=== PATIENT | male | born 1955 | race Caucasian/White ===

== ENCOUNTER → 2016-12-24 | Outpatient (CLI) | payer BC ==
[~2016-12-24] MED LIST: ACET65TA PO; ASPI81TA83 OR; BACT800T PO; CLIN300C OR; NAPR500T OR; VICO5TAB OR
--- NOTE | 2016-12-27 09:44 | SLEEPCENT ---
DATE OF STUDY: 12/24/2016 NOCTURNAL POLYSOMNOGRAPHY, CPAP TITRATION: ORDERED BY: Sofi Gutiérrez Nocturnal polysomnography was performed for the titration of pressure therapy in this patient for obstructive sleep apnea syndrome on clinical evaluation confirmed by home testing revealing a respiratory event index of 12.8. For testing, the patient was fit with a [employer] nasal mask, medium size, 4 cm of water pressure were applied to the circuit, and the lights were extinguished. 7 hours and 19 minutes of data were reviewed. There were 333 minutes of sleep identified. Sleep latency was prolonged at 18 minutes. Rapid eye movement (REM) latency was normal at 74 minutes. Sleep architecture improved over the course of the study with evidence of REM rebound. Overall sleep efficiency was 76%. The patient's EKG showed a sinus rhythm with an average heart rate of 54 beats per minute. EEG showed reasonably normal wave forms for awake and sleep. Respiratory events were found best palliated with continuous positive airway pressure (CPAP) at a pressure of +7. CPAP tolerance was good. IMPRESSION: Obstructive sleep apnea syndrome (G47.33). RECOMMENDATION: Nightly use of pressure therapy, 7 cm of water.
== END ==
LOC: M SLEEP 19:52
PROVIDERS: ATTEND Nurse Practitioner Adult Health
DX: G47.33 Obstructive sleep apnea (adult) (pediatric) (principal)

== ENCOUNTER → 2017-05-14 | Outpatient (CLI) | payer BC ==
[2017-05-14 08:32] LABS: MEAN CORPUSCULAR HEMOGLOBIN 33.7 pg (27.0-33.0); MEAN CORPUSCULAR HGB CONC 34.7 g/dl (32.0-36.5); RED CELL DISTRIBUTION WIDTH 12.9 % (11.5-14.5); WHITE BLOOD COUNT 6.7 K/mm3 (4.0-10.0)
[2017-05-14 08:39] LABS: ALBUMIN 3.9 GM/DL (3.2-5.2); ALBUMIN/GLOBULIN RATIO 1.22 (1.00-1.93); ALKALINE PHOSPHATASE 102 U/L (45-117); ALT/SGPT 32 U/L (12-78); ANION GAP 6 MEQ/L (8-16); AST/SGOT 26 U/L (15-37); BILIRUBIN,TOTAL 0.7 MG/DL (0.2-1.0); BLOOD UREA NITROGEN 18 MG/DL (7-18); CARBON DIOXIDE LEVEL 28 MEQ/L (21-32); CHLORIDE LEVEL 102 MEQ/L (98-107); CHOLESTEROL LEVEL 185 MG/DL (<200); CREATININE FOR GFR 0.85 MG/DL (0.70-1.30); GLOMERULAR FILTRATION RATE > 60.0 (>49); GLUCOSE, FASTING 92 MG/DL (80-110); POTASSIUM SERUM 4.1 MEQ/L (3.5-5.1); SODIUM LEVEL 136 MEQ/L (136-145); TOTAL PROTEIN 7.1 GM/DL (6.4-8.2); TRIGLYCERIDES LEVEL 68 MG/DL (<150)
== END ==
LOC: M LAB 07:10
PROVIDERS: ATTEND Physician Assistant
DX: I25.118 Atherosclerotic heart disease of native coronary artery with other forms of angina pectoris (principal); E78.00 Pure hypercholesterolemia, unspecified; I11.9 Hypertensive heart disease without heart failure

== ENCOUNTER → 2017-05-27 | Outpatient (REF) | payer BC ==
[~2017-05-27] MED LIST changes: +ALBU17IN INH; +ATOR40TA75 PO; +BREO1INH INH; +CARV6.25 PO; +CENTTAB47 PO; +CLOP75TA2 PO; +DURE0.055 OD; +LISI-542 PO; +NITR4TASL SL; +OCUVCAP2 PO; +PANT40TA2 PO; +VITA200016 PO
== END ==
LOC: M LAB REF 08:51
PROVIDERS: ATTEND Physician Assistant Medical
DX: L02.415 Cutaneous abscess of right lower limb (principal)

== ENCOUNTER 2017-08-21 06:34 | Outpatient (CLI) | payer BC ==
[~2017-08-21] VITALS: Ht 177.8 cm; Wt 99.8 kg
[~2017-08-21 06:34] MED LIST changes: -CENTTAB47 PO; -OCUVCAP2 PO; -VITA200016 PO
[2017-08-21] MEDS ORDERED: NS 1,000 ML IV ONE (06:45)
[2017-08-21] MEDS ORDERED: CENTTAB47 PO (07:17)
[2017-08-21] MEDS ORDERED: OCUVCAP2 PO (07:17)
[2017-08-21] MEDS ORDERED: VITA200016 PO (07:17)
[2017-08-21] MEDS ORDERED: PROPOFOL 200 MG/20 ML VIAL As Ordered ONE ×2 (07:31→07:46)
[2017-08-21] MEDS ORDERED: LIDOCAINE 2% INJ 100 MG/5 ML SDV (FOR ANES.) As Ordered ONE (07:31)
[2017-08-21 08:10] VITALS: BP 143/84
--- NOTE | 2017-08-21 08:17 | ROOR ---
Patient Name: Hardy Gillis Procedure Date: 08/21/2017 7:32 AM Date of : 1955 Age: 61 Room: [facility] Gender: Male Note Status: Finalized Procedure: Colonoscopy Indications: High risk colon cancer surveillance: Personal history of colonic polyps Providers: Holland Hadley Jr, MD Referring MD: Paop Pringle MD Requesting Provider: Medicines: Propofol per Anesthesia Complications: No immediate complications. Procedure: Pre-Anesthesia Assessment: - Prior to the procedure, a History and Physical was performed, and patient medications and allergies were reviewed. The patient is competent. The risks and benefits of the procedure and the sedation options and risks were discussed with the patient. All questions were answered and informed consent was obtained. Patient identification and proposed procedure were verified by the physician and the nurse in the pre-procedure area and in the procedure room. Mental Status Examination: alert and oriented. Airway Examination: normal oropharyngeal airway and neck mobility. Respiratory Examination: clear to auscultation. CV Examination: normal. ASA Grade Assessment: II - A patient with mild systemic disease. After reviewing the risks and benefits, the patient was deemed in satisfactory condition to undergo the procedure. The anesthesia plan was to use moderate sedation / analgesia (conscious sedation). Immediately prior to administration of medications, the patient was re-assessed for adequacy to receive sedatives. The heart rate, respiratory rate, oxygen saturations, blood pressure, adequacy of pulmonary ventilation, and response to care were monitored throughout the procedure. The physical status of the patient was re-assessed after the procedure. The Colonoscope was introduced through the anus and advanced to the cecum, identified by appendiceal orifice and ileocecal valve. The colonoscopy was performed without difficulty. The patient tolerated the procedure well. The quality of the bowel preparation was adequate. Findings: The rectum, recto-sigmoid colon, descending colon, transverse colon, ascending colon, cecum, appendiceal orifice and ileocecal valve appeared normal. A few small and large-mouthed diverticula were found in the sigmoid colon. Impression: - The rectum, recto-sigmoid colon, descending colon, transverse colon, ascending colon, cecum, appendiceal orifice and ileocecal valve are normal. - Diverticulosis in the sigmoid colon. - No specimens collected. Recommendation: - Discharge patient to home (ambulatory). - Repeat colonoscopy in 5 years for surveillance. Holland Hadley MD Holland Hadley Jr, MD 08/21/2017 8:16:58 AM This report has been signed electronically. Number of Addenda: 0 Note Initiated On: 08/21/2017 7:32 AM Estimated Blood Loss: Estimated blood loss: none.
== END 2017-08-21 08:35 | disposition home or self-care (01) ==
LOC: M OPP 06:34
PROVIDERS: ATTEND Surgery
DX: Z12.11 Encounter for screening for malignant neoplasm of colon (principal); Z86.010 Personal history of colon polyps; K57.30 Diverticulosis of large intestine without perforation or abscess without bleeding; I25.10 Atherosclerotic heart disease of native coronary artery without angina pectoris; I25.2 Old myocardial infarction; I10 Essential (primary) hypertension; E78.5 Hyperlipidemia, unspecified; Z95.5 Presence of coronary angioplasty implant and graft; L41.9 Parapsoriasis, unspecified; J45.909 Unspecified asthma, uncomplicated; E07.9 Disorder of thyroid, unspecified; G47.8 Other sleep disorders; G47.30 Sleep apnea, unspecified; R06.83 Snoring; Z87.891 Personal history of nicotine dependence; Z88.8 Allergy status to other drugs, medicaments and biological substances; Z79.899 Other long term (current) drug therapy

== ENCOUNTER → 2017-09-10 | Outpatient (REF) ==
[~2017-09-10] MED LIST changes: +CENTTAB47 PO; +OCUVCAP2 PO; +VITA200016 PO
--- NOTE | 2017-09-10 07:48 | PFTRPT ---
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 IVC is less than 85% of VC. DLCO may be underestimated. The patient was given four puffs of albuterol for postbronchodilator. PULMONARY FUNCTION TESTING: ORDERING PROVIDER: SURYA Craig DATE OF SERVICE: 09/10/17 SPIROMETRY: Pre and post bronchodilator study of excellent technical quality. The forced vital capacity is reduced. The FEV1 is in proportion. The obstructive index is, therefore, normal. FLOW VOLUME LOOP: The expiratory limb of the flow volume loop does suggest some nonspecific flow rate limitations. No significant bronchodilator response is identified. LUNG MECHANICS: The total lung capacity is normal. The residual volume in proportion. DIFFUSION CAPACITY: The diffusion capacity is normal. HEMOGLOBIN: No hemoglobin is available for correction. AIRWAY MECHANICS: Airway resistance and conductance are normal. IMPRESSION: Nonspecific flow rate limitation. Please correlate clinically. MTDD
== END ==
LOC: M CARPUL 07:02
PROVIDERS: ATTEND Nurse Practitioner Adult Health
DX: Z02.1 Encounter for pre-employment examination (principal)

== ENCOUNTER → 2017-10-22 | Outpatient (REF) | payer BC ==
[2017-10-22 19:43] LABS: MEAN CORPUSCULAR HEMOGLOBIN 32.8 pg (27.0-33.0); MEAN CORPUSCULAR HGB CONC 32.9 g/dl (32.0-36.5); MEAN CORPUSCULAR VOLUME 99.6 fl (80.0-96.0); PLATELET COUNT, AUTOMATED 214 10^3/uL (150-450); RED CELL DISTRIBUTION WIDTH 13.2 % (11.5-14.5); WHITE BLOOD COUNT 6.4 10^3/uL (4.0-10.0)
[2017-10-22 20:01] LABS: FOLATE > 24.0 NG/ML (>5.4); VITAMIN B12 LEVEL 653 PG/ML (247-911)
[2017-10-22 20:02] LABS: ALBUMIN 4.3 GM/DL (3.2-5.2); ALBUMIN/GLOBULIN RATIO 1.19 (1.00-1.93); ALKALINE PHOSPHATASE 109 U/L (45-117); ALT/SGPT 42 U/L (12-78); ANION GAP 8 MEQ/L (8-16); AST/SGOT 27 U/L (7-37); BILIRUBIN,TOTAL 0.5 MG/DL (0.2-1.0); BLOOD UREA NITROGEN 15 MG/DL (7-18); CALCIUM LEVEL 9.1 MG/DL (8.8-10.2); CARBON DIOXIDE LEVEL 30 MEQ/L (21-32); CHLORIDE LEVEL 103 MEQ/L (98-107); CHOLESTEROL LEVEL 171 MG/DL (<200); CREATININE FOR GFR 1.02 MG/DL (0.70-1.30); GLOMERULAR FILTRATION RATE > 60.0 (>49); GLUCOSE, FASTING 86 MG/DL (80-110); POTASSIUM SERUM 4.3 MEQ/L (3.5-5.1); SODIUM LEVEL 141 MEQ/L (136-145); TOTAL PROTEIN 7.9 GM/DL (6.4-8.2); TRIGLYCERIDES LEVEL 79 MG/DL (<150)
== END ==
LOC: M SFHCADAM 11:49
PROVIDERS: ATTEND Family Medicine
DX: R53.83 Other fatigue (principal); E78.2 Mixed hyperlipidemia; Z12.5 Encounter for screening for malignant neoplasm of prostate
CPT/HCPCS: 80053; 80061; 82607; 82746; 84439; 84443; 85027; G0103

== ENCOUNTER → 2017-12-08 | Outpatient (REF) | payer BC ==
[2017-12-09 09:37] LABS: TOTAL PROTEIN 7.5 GM/DL (6.4-8.2)
[2017-12-09 11:13] LABS: ALBUMIN % 59.6 % (55.8-66.1); ALPHA-1-GLOBULIN % 4.6 % (2.9-4.9); ALPHA-2-GLOBULINS % 9.1 % (7.1-11.8)
[2017-12-09 11:14] LABS: ALBUMIN 4.47 GM/DL (3.29-5.55); ALPHA-1-GLOBULINS 0.35 GM/DL (0.17-0.41); ALPHA-2-GLOBULINS 0.68 GM/DL (0.42-0.99); BETA-1-GLOBULINS % 6.6 % (4.7-7.2); BETA-2-GLOBULINS 0.47 GM/DL (0.19-0.55); BETA-2-GLOBULINS % 6.3 % (3.2-6.5); GAMMA GLOBULIN % 13.8 % (11.1-18.8); GAMMA GLOBULINS 1.04 GM/DL (0.65-1.58)
[2017-12-10 00:06] LABS: FREE KAPPA LIGHT CHAINS SERUM 15.4 mg/L (3.3-19.4); FREE LAMBDA LIGHT CHAINS SERUM 10.1 mg/L (5.7-26.3); KAPPA/LAMBDA RATIO SERUM 1.52 (0.26-1.65)
== END ==
LOC: M SFHCADAM 10:08
DX: D75.89 Other specified diseases of blood and blood-forming organs (principal); R53.83 Other fatigue

== ENCOUNTER → 2018-05-06 | Outpatient (REF) | payer BC ==
[2018-05-06 13:50] LABS: FREE T4 0.99 NG/DL (0.76-1.46)
[2018-05-06 21:41] LABS: FOLATE 17.3 NG/ML (>5.4); VITAMIN B12 LEVEL 437 PG/ML (247-911)
[2018-05-07 10:12] LABS: TESTOSTERONE FREE (DIRECT) 6.4 pg/mL (6.6-18.1)
== END ==
LOC: M SFHCADAM 08:50
DX: R53.83 Other fatigue (principal); E78.2 Mixed hyperlipidemia; Z12.5 Encounter for screening for malignant neoplasm of prostate
CPT/HCPCS: 82746

== ENCOUNTER → 2018-06-11 | Outpatient (CLI) | payer BC | LOC: M RAD 08:53 | DX: F17.210 Nicotine dependence, cigarettes, uncomplicated (principal) | CPT/HCPCS: G0297 ==

== ENCOUNTER → 2018-08-04 | Outpatient (CLI) | payer BC ==
[2018-08-06 00:06] LABS: TESTOSTERONE FREE (DIRECT) 12.7 pg/mL (6.6-18.1)
== END ==
LOC: M LAB 06:15
DX: E34.9 Endocrine disorder, unspecified (principal)
CPT/HCPCS: 84403

== ENCOUNTER → 2018-09-07 | Outpatient (CLI) | payer BC | LOC: M CARPUL 06:57 | DX: Z02.89 Encounter for other administrative examinations (principal) | CPT/HCPCS: 94010 ==

== ENCOUNTER → 2018-12-02 | Outpatient (CLI) | payer BC ==
[~2018-12-02] MED LIST changes: +CONRAY-43 43% 50ML VIAL (Q9960) As Ordered ONE; +LIDOCAINE 1% MDV 20ML VIAL As Ordered ONE; -PANT40TA2 PO; +PANT40TA3 PO; +TRIAMCINOLONE ACETONIDE SUSP 40 MG/ML VIAL (J3301) As Ordered ONE
--- NOTE | 2018-12-02 19:40 | REP ---
LEFT HIP INJECTION The procedure was performed under the direct supervision of Dr. Robbins. The benefits and risks including but not limited to pain infection bleeding and anaphylaxis were explained to the patient and informed consent was obtained. The left femoral neck was localized using fluoroscopic guidance. The skin was prepped and draped in a sterile fashion. 1% lidocaine was used as a local anesthetic. Using fluoroscopic guidance a 22-gauge spinal needle was inserted and advanced to the femoral neck. 0.5 ml of Conray 43 was injected to verify placement. 6 ml of a solution containing 5 ml of 1% lidocaine and 1 ml of Kenalog 40 mg injected. Needle was then removed. The patient tolerated the procedure well and there were no immediate complications. Less than 6 seconds of fluoroscopy time was utilized for this procedure. Reviewed by ASHANTI Arteaga 12/02/2018 03:11 P Electronically Signed by Chris Robbins MD 12/02/2018 07:31 P
== END ==
LOC: M RADPRO 09:59
PROVIDERS: ATTEND Orthopaedic Surgery
DX: M16.12 Unilateral primary osteoarthritis, left hip (principal); M25.552 Pain in left hip
CPT/HCPCS: 20610; 77002; J3301; Q9960

== ENCOUNTER → 2019-02-09 | Outpatient (CLI) | payer BC ==
[~2019-02-09] MED LIST changes: +ALBU83IN NEB; +ATOR1TAB21 PO; +BREO1INH3 INH; -CONRAY-43 43% 50ML VIAL (Q9960) As Ordered ONE; +DHEA1CAP PO; +LEVO75TA4 PO; -LIDOCAINE 1% MDV 20ML VIAL As Ordered ONE; +PROAAER10 INH; +TRAM50TA2 PO; -TRIAMCINOLONE ACETONIDE SUSP 40 MG/ML VIAL (J3301) As Ordered ONE; +[UNRECOGNIZED DRUG - CODE] PO
[2019-02-09 07:04] LABS: HEMATOCRIT 46.2 % (42.0-52.0); HEMOGLOBIN 15.3 g/dl (13.5-17.5); MEAN CORPUSCULAR HEMOGLOBIN 31.7 pg (27.0-33.0); MEAN CORPUSCULAR HGB CONC 33.1 g/dl (32.0-36.5); MEAN CORPUSCULAR VOLUME 95.9 fl (80.0-96.0); PLATELET COUNT, AUTOMATED 211 10^3/uL (150-450); RED BLOOD COUNT 4.82 10^6/uL (4.30-6.10); WHITE BLOOD COUNT 7.3 10^3/uL (4.0-10.0)
[2019-02-09 07:14] LABS: PROTHROMBIN TIME 13.3 SECONDS (12.1-14.4)
[2019-02-09 07:24] LABS: ERYTHROCYTE SEDIMENTATION RATE 8 mm/hr (0-20)
[2019-02-09 07:34] LABS: ALBUMIN 3.9 GM/DL (3.2-5.2); ALT/SGPT 33 U/L (12-78); BILIRUBIN,TOTAL 0.9 MG/DL (0.2-1.0); BLOOD UREA NITROGEN 12 MG/DL (7-18); CALCIUM LEVEL 8.9 MG/DL (8.8-10.2); CARBON DIOXIDE LEVEL 26 MEQ/L (21-32); CHLORIDE LEVEL 99 MEQ/L (98-107); CREATININE FOR GFR 0.99 MG/DL (0.70-1.30); GLOMERULAR FILTRATION RATE > 60.0 (>49); GLUCOSE, FASTING 91 MG/DL (70-100); POTASSIUM SERUM 4.2 MEQ/L (3.5-5.1); SODIUM LEVEL 133 MEQ/L (136-145); TOTAL PROTEIN 7.6 GM/DL (6.4-8.2)
--- NOTE | 2019-02-09 09:52 | REP ---
Chest x-ray: Two views. History: Left hip arthritis. Comparison chest x-ray: July 31, 2016. Findings: Lungs are well inflated and clear. Pleural angles are sharp. Heart size is normal. There are degenerative changes in the thoracic spine. Pulmonary vasculature is not increased. Impression: No active disease. Electronically Signed by Chris Robbins MD 02/09/2019 09:44 A
--- NOTE | 2019-02-10 21:12 | ECGEPIP ---
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
== END ==
LOC: M LAB 06:26
PROVIDERS: ATTEND Orthopaedic Surgery
DX: Z01.818 Encounter for other preprocedural examination (principal); M51.34 Other intervertebral disc degeneration, thoracic region; I51.9 Heart disease, unspecified; K76.9 Liver disease, unspecified; N28.9 Disorder of kidney and ureter, unspecified; Z79.52 Long term (current) use of systemic steroids

== ENCOUNTER → 2019-02-09 | Outpatient (CLI) | payer BC ==
[2019-02-09 07:05] LABS: HEMATOCRIT 46.1 % (42.0-52.0); HEMOGLOBIN 15.2 g/dl (13.5-17.5); MEAN CORPUSCULAR HEMOGLOBIN 31.7 pg (27.0-33.0); PLATELET COUNT, AUTOMATED 197 10^3/uL (150-450); WHITE BLOOD COUNT 7.2 10^3/uL (4.0-10.0)
[2019-02-09 07:36] LABS: ALBUMIN 3.9 GM/DL (3.2-5.2); ALT/SGPT 33 U/L (12-78); BILIRUBIN,DIRECT 0.3 MG/DL (0.0-0.2); BILIRUBIN,TOTAL 0.9 MG/DL (0.2-1.0); BLOOD UREA NITROGEN 12 MG/DL (7-18); CALCIUM LEVEL 8.9 MG/DL (8.8-10.2); CARBON DIOXIDE LEVEL 26 MEQ/L (21-32); CHLORIDE LEVEL 99 MEQ/L (98-107); CHOLESTEROL LEVEL 176 MG/DL (<200); CHOLESTEROL RISK RATIO 2.285 (<5); GLOMERULAR FILTRATION RATE > 60.0 (>49); GLUCOSE, FASTING 91 MG/DL (70-100); HDL CHOLESTEROL 77 MG/DL (>40); LDL CHOLESTEROL 87 MG/DL (<100); NON-HDL-C 99 MG/DL; POTASSIUM SERUM 4.2 MEQ/L (3.5-5.1); SODIUM LEVEL 134 MEQ/L (136-145); TOTAL PROTEIN 7.7 GM/DL (6.4-8.2); TRIGLYCERIDES LEVEL 62 MG/DL (<150)
== END ==
LOC: M LAB 06:21
PROVIDERS: ATTEND Nurse Practitioner Family
DX: E78.5 Hyperlipidemia, unspecified (principal); Z98.61 Coronary angioplasty status

== ENCOUNTER 2019-03-22 15:03 | Outpatient (RCR) | payer BC ==
[~2019-03-22 15:03] MED LIST changes: +PERC5TAB12 PO
== END 2019-04-16 ==
LOC: M PT 15:03
PROVIDERS: ATTEND Physician Assistant Medical
DX: Z96.642 Presence of left artificial hip joint (principal)

== ENCOUNTER 2019-05-16 07:10 | Emergency (ER) | payer BC ==
[~2019-05-16] VITALS: Ht 177.8 cm; Wt 102.3 kg
[2019-05-16] MEDS ORDERED: ONDANSETRON 4MG/2ML VIAL (J2405) IV ONE (07:30)
[2019-05-16] MEDS ORDERED: MORPHINE 4 MG/ML 1ML VIAL/SYRINGE (J2270) IV PRN (07:30)
[2019-05-16 07:42] LABS: BASO % 0.6 % (0.0-1.0); EOS # 0.2 10^3/uL (0.0-0.50); EOS % 2.9 % (0.0-3.0); HEMATOCRIT 41.6 % (42.0-52.0); HEMOGLOBIN 13.8 g/dl (13.5-17.5); LYMPH # 1.4 10^3/uL (1.5-4.5); LYMPH % 20.6 % (24.0-44.0); MEAN CORPUSCULAR HEMOGLOBIN 32.2 pg (27.0-33.0); MEAN CORPUSCULAR HGB CONC 33.2 g/dl (32.0-36.5); MONO # 0.6 10^3/uL (0.0-0.8); MONO % 8.7 % (0.0-5.0); NEUTROPHILS # 4.7 10^3/uL (1.8-7.7); NEUTROPHILS % 66.9 % (36.0-66.0); PLATELET COUNT, AUTOMATED 195 10^3/uL (150-450); RED BLOOD COUNT 4.29 10^6/uL (4.30-6.10)
--- NOTE | 2019-05-16 07:50 | REP ---
Clinical: Chest pain . Comparison: 02/09/2019 . Findings: The mediastinum and cardiac silhouette are stable and within normal limits for portable technique. The lung bragg are clear without acute consolidation, effusion, or pneumothorax. Skeletal structures are intact. Impression: No acute cardiopulmonary process appreciated. Electronically Signed by Jarrell Arceo MD 05/16/2019 07:41 A
[2019-05-16 08:10] LABS: ALBUMIN 3.6 GM/DL (3.2-5.2); ALT/SGPT 35 U/L (12-78); BILIRUBIN,DIRECT 0.1 MG/DL (0.0-0.2); BILIRUBIN,TOTAL 0.5 MG/DL (0.2-1.0); BLOOD UREA NITROGEN 14 MG/DL (7-18); CALCIUM LEVEL 8.3 MG/DL (8.8-10.2); CARBON DIOXIDE LEVEL 25 MEQ/L (21-32); CHLORIDE LEVEL 105 MEQ/L (98-107); CPK CREATINE PHOSPHOKINASE 216 U/L (39-308); CREATININE FOR GFR 1.04 MG/DL (0.70-1.30); GLOMERULAR FILTRATION RATE > 60.0 (>49); GLUCOSE, FASTING 125 MG/DL (70-100); LIPASE 105 U/L (73-393); MB/CK RELATIVE INDEX 3.24 (< OR =4); NT-PRO BNP 26 PG/ML (<125); SODIUM LEVEL 139 MEQ/L (136-145); TOTAL PROTEIN 7.5 GM/DL (6.4-8.2); TROPONIN I < 0.02 NG/ML (< 0.10)
[2019-05-16] MEDS ORDERED: ISOVUE-370 76% 100ML VIAL (Q9967) As Ordered ONE (08:26)
[2019-05-16] MEDS ORDERED: CLOPIDOGREL 75 MG TAB PO ONE (09:00)
[2019-05-16] MEDS ORDERED: ALBU83IN NEB (09:27)
[2019-05-16] MEDS ORDERED: PROAAER10 INH (09:28)
--- NOTE | 2019-05-16 09:46 | ECGEPIP ---
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
--- NOTE | 2019-05-16 09:47 | ECGEPIP ---
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
[2019-05-16] MEDS ORDERED: ATOR1TAB21 PO (09:51)
--- NOTE | 2019-05-16 09:59 | REP ---
Clinical: Acute pleuritic chest pain. Technique: Axial contrast enhanced images from the thoracic inlet to the upper abdomen using 100 ml Isovue 370 intravenous contrast material with coronal and sagittal re-formations. Findings: Satisfactory enhancement of the pulmonary vasculature is achieved and no filling defects are identified to suggest pulmonary embolus. Thoracic aorta is normal caliber without aneurysm or dissection. Heart and pericardium are normal. Bilateral lung bragg are well aerated and clear without acute pulmonary parenchymal consolidation or atelectasis. No nodule or mass lesion. No pleural effusion/reaction. No pneumothorax. No adenopathy. Impression: No evidence for pulmonary embolus. No acute pleuroparenchymal or mediastinal process. Electronically Signed by Jarrell Arceo MD 05/16/2019 09:51 A
[2019-05-16 10:08] LABS: CK-MB VALUE MASS 6.5 NG/ML (<3.6); CPK CREATINE PHOSPHOKINASE 208 U/L (39-308); MB/CK RELATIVE INDEX 3.12 (< OR =4)
[2019-05-16 10:09] LABS: TROPONIN I < 0.02 NG/ML (< 0.10)
[2019-05-16 15:37] LABS: CK-MB VALUE MASS 5.4 NG/ML (<3.6); CPK CREATINE PHOSPHOKINASE 166 U/L (39-308); MB/CK RELATIVE INDEX 3.25 (< OR =4); TROPONIN I < 0.02 NG/ML (< 0.10)
[2019-05-16 16:00] VITALS: BP 137/71
--- NOTE | 2019-05-17 21:47 | ECGEPIP ---
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
== END 2019-05-16 16:15 | disposition home or self-care (01) ==
LOC: M ED 07:10 → EDBD 07:10 → M ED 16:15
DX: R07.9 Chest pain, unspecified (principal); I45.10 Unspecified right bundle-branch block; I35.0 Nonrheumatic aortic (valve) stenosis; K21.9 Gastro-esophageal reflux disease without esophagitis; E07.9 Disorder of thyroid, unspecified; Z79.899 Other long term (current) drug therapy; Z79.890 Hormone replacement therapy; Z88.8 Allergy status to other drugs, medicaments and biological substances; Z87.891 Personal history of nicotine dependence
CPT/HCPCS: 71045; 71275; 80048; 80076; 82550; 82553; 83690; 83880; 84443; 84484; 85025; 85379; 93005; 93041; 94760; 96374; 96375; 99285; J2270; J2405; Q9967

== ENCOUNTER → 2019-09-13 | Outpatient (REF) | payer BC, OTHER ==
--- NOTE | 2019-09-13 08:38 | PFTRPT ---
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 Forced vital capacity reduced. FEV1 is in proportion. Obstructive index is, therefore, normal. Flow Volume Loop: Expiratory limb of the flow volume loop does suggest some nonspecific flow rate limitation. Lung Volumes: Total lung capacity is normal. Residual volume generally in proportion. Diffusing Capacity: Diffusing capacity is borderline. Hemoglobin: No hemoglobin available for correction. Airway Mechanics: Airway resistance and conductance are normal. IMPRESSION: Nonspecific limitations require clinical correlation. MTDD
== END ==
LOC: EDSTATUS 08:00 → M CARPUL 08:03
PROVIDERS: ATTEND Nurse Practitioner Adult Health
DX: Z00.8 Encounter for other general examination (principal)

== ENCOUNTER → 2019-09-13 | Outpatient (CLI) | payer BC ==
[2019-09-13 06:48] LABS: HEMATOCRIT 44.7 % (42.0-52.0); HEMOGLOBIN 14.8 g/dl (13.5-17.5); MEAN CORPUSCULAR HGB CONC 33.1 g/dl (32.0-36.5); MEAN CORPUSCULAR VOLUME 96.8 fl (80.0-96.0); PLATELET COUNT, AUTOMATED 191 10^3/uL (150-450); RED BLOOD COUNT 4.62 10^6/uL (4.30-6.10); WHITE BLOOD COUNT 5.8 10^3/uL (4.0-10.0)
[2019-09-13 07:25] LABS: ALT/SGPT 32 U/L (12-78); BILIRUBIN,TOTAL 0.6 MG/DL (0.2-1.0); BLOOD UREA NITROGEN 13 MG/DL (7-18); CALCIUM LEVEL 8.8 MG/DL (8.8-10.2); CARBON DIOXIDE LEVEL 26 MEQ/L (21-32); CHLORIDE LEVEL 104 MEQ/L (98-107); CREATININE FOR GFR 0.98 MG/DL (0.70-1.30); GLOMERULAR FILTRATION RATE > 60.0 (>49); GLUCOSE, FASTING 98 MG/DL (70-100); POTASSIUM SERUM 4.3 MEQ/L (3.5-5.1); SODIUM LEVEL 138 MEQ/L (136-145); TRIGLYCERIDES LEVEL 47 MG/DL (<150)
[2019-09-13 07:26] LABS: ALBUMIN 3.7 GM/DL (3.2-5.2); CHOLESTEROL LEVEL 154 MG/DL (<200); CHOLESTEROL RISK RATIO 2.109 (<5); FREE T4 0.74 NG/DL (0.76-1.46); HDL CHOLESTEROL 73 MG/DL (>40); LDL CHOLESTEROL 72 MG/DL (<100); NON-HDL-C 81 MG/DL
== END ==
LOC: M LAB 06:12
PROVIDERS: ATTEND Family Medicine
DX: E78.2 Mixed hyperlipidemia (principal); Z12.5 Encounter for screening for malignant neoplasm of prostate; I25.10 Atherosclerotic heart disease of native coronary artery without angina pectoris; E34.9 Endocrine disorder, unspecified; E03.8 Other specified hypothyroidism
CPT/HCPCS: 36415; 80053; 80061; 84402; 84403; 84439; 84443; 85027; G0103

== ENCOUNTER → 2019-10-29 | Outpatient (CLI) | payer BC ==
[2019-10-29 07:12] LABS: FREE T4 1.12 NG/DL (0.76-1.46); THYROID STIMULATING HORMONE 2.13 uIU/ML (0.358-3.740)
== END ==
LOC: M LAB 06:16
PROVIDERS: ATTEND Family Medicine
DX: E03.9 Hypothyroidism, unspecified (principal)

== ENCOUNTER → 2019-12-15 | Outpatient (CLI) | payer BC ==
[2019-12-15 07:22] LABS: FREE T4 1.2 NG/DL (0.76-1.46); THYROID STIMULATING HORMONE 0.732 uIU/ML (0.358-3.740)
== END ==
LOC: M LAB 06:10
PROVIDERS: ATTEND Family Medicine
DX: E03.9 Hypothyroidism, unspecified (principal)

== ENCOUNTER → 2020-09-12 | Outpatient (REF) ==
[~2020-09-12] MED LIST changes: +PANT40TA29 PO; -PANT40TA3 PO
--- NOTE | 2020-09-12 11:15 | PFTRPT ---
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 Technique: Pre- and post-bronchodilator study of excellent technical quality. Forced vital capacity is normal. FEV1 is in proportion of obstructive index; therefore, normal. Expiratory limit within the flow-volume loop is normal. Total lung capacity is not tested. Total gas volume is normal. Diffusing capacity is normal. No hemoglobin is available for correction. Airway resistance and conductance are normal. IMPRESSION: Essentially normal study. MTDD
== END ==
LOC: M CARPUL 10:32 → EDSTATUS 11:00
PROVIDERS: ATTEND Nurse Practitioner Adult Health
DX: Z13.83 Encounter for screening for respiratory disorder NEC (principal)

== ENCOUNTER → 2020-10-18 | Outpatient (CLI) | payer BC ==
[2020-10-18 06:46] LABS: HEMATOCRIT 46.8 % (42.0-52.0); HEMOGLOBIN 15.2 g/dl (13.5-17.5); MEAN CORPUSCULAR HEMOGLOBIN 31.5 pg (27.0-33.0); MEAN CORPUSCULAR HGB CONC 32.5 g/dl (32.0-36.5); MEAN CORPUSCULAR VOLUME 97.1 fl (80.0-96.0); PLATELET COUNT, AUTOMATED 192 10^3/uL (150-450); RED BLOOD COUNT 4.82 10^6/uL (4.30-6.10); WHITE BLOOD COUNT 6.6 10^3/uL (4.0-10.0)
[2020-10-18 07:17] LABS: ALT/SGPT 37 U/L (12-78); BILIRUBIN,TOTAL 0.5 MG/DL (0.2-1.0); BLOOD UREA NITROGEN 19 MG/DL (7-18); CALCIUM LEVEL 9.1 MG/DL (8.8-10.2); CARBON DIOXIDE LEVEL 26 MEQ/L (21-32); CHLORIDE LEVEL 107 MEQ/L (98-107); CHOLESTEROL LEVEL 185 MG/DL (<200); CHOLESTEROL RISK RATIO 2.202 (<5); CREATININE FOR GFR 1.12 MG/DL (0.70-1.30); FREE T4 0.83 NG/DL (0.76-1.46); GLOMERULAR FILTRATION RATE > 60.0 (>49); GLUCOSE, FASTING 95 MG/DL (70-100); HDL CHOLESTEROL 84 MG/DL (>40); LDL CHOLESTEROL 88 MG/DL (<100); NON-HDL-C 101 MG/DL; POTASSIUM SERUM 4.6 MEQ/L (3.5-5.1); SODIUM LEVEL 138 MEQ/L (136-145); TOTAL PROTEIN 7.4 GM/DL (6.4-8.2); TRIGLYCERIDES LEVEL 66 MG/DL (<150)
== END ==
LOC: M LAB 06:22
PROVIDERS: ATTEND Family Medicine
DX: E78.2 Mixed hyperlipidemia (principal); I25.10 Atherosclerotic heart disease of native coronary artery without angina pectoris; Z12.5 Encounter for screening for malignant neoplasm of prostate
CPT/HCPCS: 36415; 80053; 80061; 84439; 84443; 85027; G0103

== ENCOUNTER → 2020-11-23 | Outpatient (REF) | payer SELFPAY | LOC: EDSTATUS 12:20 → M LABSMTC 13:01 | PROVIDERS: ATTEND Pediatrics | DX: Z20.822 Contact with and (suspected) exposure to COVID-19 (principal) ==

== ENCOUNTER → 2021-03-20 | Outpatient (CLI) | payer BC ==
[~2021-03-20] MED LIST changes: -LISI-542 PO; +LISI-898 PO
[2021-03-20 07:27] LABS: FREE T4 1.09 NG/DL (0.76-1.46); THYROID STIMULATING HORMONE 1.43 uIU/ML (0.358-3.740)
== END ==
LOC: M LAB 06:30
PROVIDERS: ATTEND Family Medicine
DX: E03.8 Other specified hypothyroidism (principal)